=== PATIENT | male | born 2000 | race African-American/Black ===

== ENCOUNTER → 2018-03-11 | Outpatient (CLI) | payer OTHER | END | disposition home or self-care (01) | LOC: CFH 10:39 | PROVIDERS: ATTEND Family Medicine | DX: M99.13 Subluxation complex (vertebral) of lumbar region (principal) | CPT/HCPCS: 72100 ==

== ENCOUNTER → 2018-08-03 | Outpatient (CLI) | payer OTHER | END | disposition home or self-care (01) | LOC: CFH 08:55 | PROVIDERS: ATTEND Family Medicine | DX: M43.06 Spondylolysis, lumbar region (principal); M47.817 Spondylosis without myelopathy or radiculopathy, lumbosacral region; M48.07 Spinal stenosis, lumbosacral region | CPT/HCPCS: 72148 ==

== ENCOUNTER 2020-10-27 18:23 | Emergency (ER) | payer SELFPAY ==
[~2020-10-27] VITALS: Ht 177.8 cm; Wt 64.7 kg
[2020-10-27 18:26] VITALS: BP 133/73
--- NOTE | 2020-10-27 19:10 | NUR ---
PT TO ROOM FROM LOBBY. NAD.
--- NOTE | 2020-10-27 19:14 | NUR ---
PT SITTING IN CHAIR IN ROOM, DENIES NEEDS. AMBULATORY C STEADY GAIT. PT INSTRUCTED ON USE OF CALL LIGHT, WITHIN REACH OF PT. PT VERBALIZED UNDERSTANDING. PT DENIES NEEDS AT THIS TIME. AWAITING EVAL BY ED .
[2020-10-27] MEDS ORDERED: IBUPROFEN 200 MG TABLET ONE (19:23)
[2020-10-27] MEDS ORDERED: IBUPROFEN 200 MG TABLET PO ONE (19:30)
[2020-10-27] MEDS ORDERED: HYDROcodone/APAP 5/325 TABLET ONE (19:57)
[2020-10-27] MEDS ORDERED: HYDROcodone/APAP 5/325 TABLET PO ONE (20:00)
--- NOTE | 2020-10-27 20:05 | NUR ---
PT REFUSED [facility] STATING HIS PAIN IS WELL MANAGED AT THIS TIME. LORNA AT BEDSIDE TO PLACE SPLING. DC INSTRUCTIONS PROVIDED TO PT INCLUDING SPLING/SLING USE, CMS MONITORING, PAIN MEDICATIONS, AND ORTHOPEDIC FOLLOW UP. PT VERBALIZED UNDERSTANDING TO DC INSTRUCTIONS. AMBULATORY C STEADY GAIT.
--- NOTE | 2020-10-27 20:32 | NUR ---
PT HAS SLING AT HOME.
== END 2020-10-27 20:33 | disposition home or self-care (01) ==
LOC: ED 20:00
DX: S62.316A Displaced fracture of base of fifth metacarpal bone, right hand, initial encounter for closed fracture (principal); W18.30XA Fall on same level, unspecified, initial encounter; Y93.89 Activity, other specified; Y92.009 Unspecified place in unspecified non-institutional (private) residence as the place of occurrence of the external cause; Y99.8 Other external cause status
CPT/HCPCS: 29125; 99283

== ENCOUNTER 2020-12-27 10:26 | Emergency (ER) | payer SELFPAY ==
[~2020-12-27] VITALS: Ht 180.3 cm; Wt 60.0 kg
[2020-12-27 10:39] VITALS: BP 119/66
--- NOTE | 2020-12-27 10:55 | NUR ---
DC from [facility] 2 days ago s/p spontaneous pneumothorax, has dressing to left flank. Here because feels numbness throughout abdomen, lightheadness. Covid Pfeizer due for 2nd injection. NKDA.
--- NOTE | 2020-12-27 11:20 | NUR ---
Dr Torrez at bedside to examine/interview.
--- NOTE | 2020-12-27 12:07 | NUR ---
Orders placed by ERP, waiting for labs/xray. Pt in NAD, AIDET provided.
--- NOTE | 2020-12-27 12:09 | NUR ---
Pt says he feels better and doesn't want to stay and walked out, left before AMA form could be signed. Informed ERP.
== END 2020-12-27 12:24 | disposition left against medical advice (07) ==
LOC: ED 12:15
DX: R42 Dizziness and giddiness (principal); R06.02 Shortness of breath; R53.83 Other fatigue; R94.31 Abnormal electrocardiogram [ECG] [EKG]
CPT/HCPCS: 93005; 99283